=== PATIENT | female | born 1970 | race Caucasian/White ===

== ENCOUNTER → 2016-02-19 | Outpatient (CLI) | payer BC, OTHER ==
[~2016-02-19] VITALS: Ht 175.3 cm; Wt 51.7 kg
[~2016-02-19] MED LIST: FENTANYL PA12 MCG/HR TP; FENTANYL PA25 MCG/HR TRANSDERM; FENTANYL PA50 MCG/HR TRANSDERM; HYDROCODON-ACE1 EAC5 PO; HYDROCODONE-AP1 EAC6 PO; NEURONTIN 300300 M1 PO; NORTRIPTYLINE H10 M1 PO; TIZANIDINE HCL 22 M1 PO; XANAX 0.5 MG0.5 M1 PO; XANAX 0.5 MG0.5 MG PO
--- NOTE | ~2016-02-19 | HPC ---
[facility] [place] [address] PAIN MANAGEMENT CONSULTATION Name: BLAIR MONTOYA Room #: REG NELI Alonzo.#: [id number] Admission: 02/19/16 Attend Phys: Cedrick Cabrales MD Discharge: Date of : 68 Report #: [id number] THIS REPORT FOR: //name// CC: Tiffanie Skinner MD PhD Stoney Lambert DO Cedrick Cabrales DATE OF SERVICE: 02/19/2016 Followup visit for rectal cancer, management of medication. The patient returns to pain clinic today in followup. I last saw her on 01/01 just before , when she was given again Impar. She felt that she had made quite a bit of progress and her pain was improved with the injections, although now in retrospect she does not think that they helped very much. She continued on fentanyl 50 mcg q. 72 hours and ____ patches. She would like to try and taper her dose slightly and we talked about going to 37 mg. She still has 6 weeks to go before she will have her surgery. At that time, she will have reversal of her ileostomy and she is hopeful that her pain will be improved by that time. She still has pain in and around the rectal region. She has an appointment with Dr. Skinner anticipated in the next few months. They will perhaps repeat a scope of her rectal stump. PHYSICAL EXAMINATION: GENERAL: Today, she has positive upbeat. VITAL SIGNS: Show blood pressure of 103/63, heart rate 70, respirations 14, BMI is 16.8. EXTREMITIES: She complains of localized pain in the rectal area, sharp, stabbing and tender. IMPRESSION: 1. Rectal pain, status post resection of rectal tumor. Ileostomy with healing rectal stump. 2. Management of high risk medication. 3. Sympathetic nerve pain. PLAN: 1. We will forego any further injections given her feeling now that these were not helpful. [facility] [address] [place] [address] PAIN MANAGEMENT CONSULTATION Name: BLAIR MONTOYA Room #: REG [facility].#: [id number] Admission: 02/19/16 Attend Phys: Cedrick Cabrales MD Discharge: Date of : 68 Report #: [id number] 2. Renewed her fentanyl at 37 mcg q. 72 hours with breakthrough hydrocodone. 3. Follow up in the pain clinic in 2 months. <ELECTRONICALLY SIGNED> By: Cedrick Cabrales MD 02/21/16 1329 1627 05 Cedrick Cabrales MD /nt
[2016-02-19 14:44] VITALS: BP 103/63
== END | disposition home or self-care (01) ==
LOC: PAIN 07:42
DX: K62.89 Other specified diseases of anus and rectum (principal); Z93.2 Ileostomy status; Z85.048 Personal history of other malignant neoplasm of rectum, rectosigmoid junction, and anus